=== PATIENT | male | born 1995 | race African-American/Black ===

== ENCOUNTER 2017-03-19 09:23 | Emergency (ER) | payer OTHER ==
--- NOTE | ~2017-03-19 | CR63 ---
[facility] A Service of [facility] & [facility] RADIOLOGY TEXT RESULTS PATIENT: EVA FINN LOCATION: [place] : [birth year] UNIT #: [id number] AGE: [address]: Jaquelin Ace APRN SEX: M ORDER DR: [id number] [facility] [address]. [place], [place] [address] [id number] MR#: [id number] Acc #: [id number] NAME: EVA FINN : 1995 SEX: M STUDY DATE/TIME: 03/19/2017 10:29 UNIT: [facility] ROOM: STUDY DESCRIPTION: CR Chest 2 View Attending Physician: Jaquelin Ace A.P.R.N. Ordering Physician: Ed Devonte Campa M.D. Primary Care Physician: No Primary Care Physician MEDICAL IMAGING REPORT This report is preliminary unless electronic signature is present EXAM Chest, 03/19/2017, [facility]. HISTORY 22-year-old male patient with unexplained chest pain radiating into patient's back. Coexisting right rib pain. Symptoms noted today. COMPARISON Chest, 10/31/2015. FINDINGS Two-view chest demonstrates normal cardiac size and configuration. Hilar structures and mediastinal contours are preserved. Bilateral lungs are expanded and clear. Bony thorax is negative. IMPRESSION Negative chest. Dictated by... Zain Nick M.D. THIS IS AN ELECTRONICALLY VERIFIED REPORT Zain Nick M.D. at 03/19/2017 3:22 PM SAVANNA/joslyn TD: 03/19/2017 14:17 JOB #: [id number] MEDICAL IMAGING REPORT Page 1 of 1 COPY
[2017-03-19 10:28] LABS: BASOPHIL% 0.8 % (0-2.5); EOSINOPHIL# 0.3 X10e3 (0-0.7); EOSINOPHIL% 6.6 % (0.0-7.0); HEMATOCRIT 46.5 % (38.0-50.0); HEMOGLOBIN 16.1 gm/dL (13.0-16.0); LYMPHOCYTE% 40.3 % (17.0-45.0); MEAN CELL VOLUME 87.6 FL (83-96); MEAN CORPUSCULAR HEMOGLOBIN 30.2 PG (28-34); MEAN CORPUSCULAR HGB CONC 34.5 g/dL (30-36); MEAN PLATELET VOLUME 6.9 FL (6.5-11.5); MONOCYTE# 0.4 X10e3 (0-1.0); NEUTROPHIL# 2.2 X10e3 (1.5-7.1); NEUTROPHIL% 44.3 % (40-75); PLATELET COUNT 319 X10e3 (140-420); RED BLOOD COUNT 5.31 X10e (3.90-5.60); RED CELL DISTRIBUTION WIDTH 13.9 % (11.0-15.5)
[2017-03-19 10:30] LABS: DIFF IND NO
[2017-03-19 10:33] LABS: URINE SOURCE CLEAN CATCH
[2017-03-19 10:52] LABS: URINE APPEARANCE CLEAR; URINE BILIRUBIN NEG (NEG); URINE BLOOD TRACE (NEG); URINE COLOR YELLOW; URINE GLUCOSE NEG (NEG); URINE KETONE NEG (NEG); URINE LEUKOCYTE ESTERASE NEG (NEG); URINE NITRATE NEG (NEG); URINE PROTEIN NEG (NEG); URINE SPECIFIC GRAVITY 1.016 (1.003-1.035)
[2017-03-19 10:53] LABS: ALBUMIN SERUM 4.3 g/dL (3.5-5.0); BILIRUBIN, DIRECT 0.2 mg/dL (0.0-0.2); BILIRUBIN,INDIRECT 1.5 mg/dL (0.0-0.9); BILIRUBIN,TOTAL 1.7 mg/dL (0.2-2.0); CALCIUM SERUM 8.9 mg/dL (8.4-10.2); CREATININE SERUM 0.8 mg/dL (0.6-1.4); POTASSIUM 4.1 mmol/L (3.5-5.1); PROTEIN TOTAL SERUM 7.1 g/dL (6.0-8.3)
[2017-03-19 10:55] LABS: URINE BACTERIA AUWI NEG (NEGATIVE); URINE SQUAMOUS EPITHELIAL CELL NONE SEEN /[HPF]; UWBCS1 AUWI 0-2 (0-5)
[2017-03-19 10:59] LABS: CULTURE INDICATED? NO
== END 2017-03-19 11:50 | disposition home or self-care (01) ==
LOC: CED 09:23 → CFTX 09:23
PROVIDERS: Nurse Practitioner
DX: S29.011A Strain of muscle and tendon of front wall of thorax, initial encounter (principal); X58.XXXA Exposure to other specified factors, initial encounter; Y92.9 Unspecified place or not applicable
CPT/HCPCS: 36415; 71020; 80048; 80076; 81003; 83690; 85025; 99284

== ENCOUNTER 2017-03-20 00:23 | Emergency (ER) | payer OTHER ==
[2017-03-20 03:11] LABS: POC - CKMB <1.0 ng/mL (0.0-7.9); POC - TROPONIN <0.05 ng/mL (<=0.05)
[2017-03-20 03:52] LABS: URINE SOURCE CLEAN CATCH
[2017-03-20 03:55] LABS: URINE APPEARANCE CLEAR; URINE BILIRUBIN NEG (NEG); URINE BLOOD TRACE (NEG); URINE COLOR YELLOW; URINE GLUCOSE NEG (NEG); URINE KETONE NEG (NEG); URINE LEUKOCYTE ESTERASE NEG (NEG); URINE NITRATE NEG (NEG); URINE PROTEIN NEG (NEG); URINE SPECIFIC GRAVITY 1.016 (1.003-1.035)
[2017-03-20 03:58] LABS: URBCS1 AUWI 0-2 /[HPF] (0-2); URINE BACTERIA AUWI NEG (NEGATIVE); URINE SQUAMOUS EPITHELIAL CELL NONE SEEN /[HPF]; UWBCS1 AUWI 0-2 (0-5)
[2017-03-20 04:05] LABS: AMPHETAMINE NEG (NEG); BARBITURATES NEG (NEG); BENZODIAZEPINES NEG (NEG); COCAINE NEG (NEG); CULTURE INDICATED? NO; MARIJUANA NEG (NEG); OPIATES NEG (NEG); TRICYCLIC ANTIDEPRESSANTS NEG (NEG); U METHADONE NEG (NEG)
== END 2017-03-20 04:24 | disposition home or self-care (01) ==
LOC: CED 00:23
PROVIDERS: Emergency Medicine
DX: R00.2 Palpitations (principal)
CPT/HCPCS: 36415; 80307; 81003; 82553; 84443; 84484; 99285